=== PATIENT | female | born 1960 | race Caucasian/White ===

== ENCOUNTER → 2017-06-23 | Day surgery (SDC) | payer OTHER ==
[2017-06-17 11:10] VITALS: BP 116/50
[~2017-06-23] VITALS: Ht 160 cm; Wt 47.6 kg
[~2017-06-23] MED LIST: ALL DAY ALLERGY10 MG PO; D3-20002000 UNIT PO; GABAPENTIN100 M2 PO; LISINOPRIL AND1 TAB PO; LORAZEPAM0.5 MG PO; OMNICEF300 MG PO; ONDANSETRON HYDR4 M1 PO; OXYCODONE AND A1 TA3 PO; TIZANIDINE HCL4 MG PO
--- NOTE | ~2017-06-23 | O ---
[place], [place] OPERATIVE NOTE NAME: ALEXANDRA DAVE UNIT #: [id number] ROOM: DOCTOR: VARGAS VASQUEZ MD BIRTHDATE: [birth year] DOS: 06/23/2017 PREOPERATIVE DIAGNOSES: Left supraorbital skin lesion, left lower leg skin lesion. POSTOPERATIVE DIAGNOSES: Left supraorbital skin lesion, left lower leg skin lesion. PROCEDURE: Excisional biopsy of left supraorbital skin lesion, shave biopsy of a pigmented left leg lesion. SURGEON: Dr. Vasquez. ANESTHESIA: General. The patient is being taken to the operating room for excisional biopsy of several pigmented skin lesions she is concerned about. First is in the left supraorbital region near the eyebrow. Second is in the lower leg and is less than 1 cm. DESCRIPTION OF PROCEDURE: Following induction of general anesthesia, the patient was positioned supine on the OR table and draped and prepped in a standard fashion. Left supraorbital region was identified first. A 2-3 cm elliptical excision of the pigmented left supraorbital lesion and surrounding normal skin was excised and submitted to pathology for histologic analysis. Minor bleeding was controlled with electrical cautery. The wound was closed with a running 5-0 nylon suture. A sterile dressing was applied. Shave biopsy was then performed of the left lower leg pigmented skin lesion which was less than 1 cm in diameter. Both specimens were submitted to pathology. At the end of the case, all instrument and sponge counts were correct. The patient was awakened and transported to PACU in satisfactory condition. VARGAS VASQUEZ MD CM:OPRECORD:OPERATIVE NOTE [id number] VARGAS VASQUEZ MD 06/25/17 0928 interface
[2017-06-23 09:09] VITALS: BP 138/69
[2017-06-23 10:30] VITALS: BP 107/58
[2017-06-23 10:45] VITALS: BP 107/58
[2017-06-23 10:57] VITALS: BP 105/60
== END | disposition home or self-care (01) ==
LOC: SDC 06-17 11:00
DX: L57.0 Actinic keratosis (principal); L82.1 Other seborrheic keratosis; I10 Essential (primary) hypertension; Z98.890 Other specified postprocedural states; F17.210 Nicotine dependence, cigarettes, uncomplicated; Z98.51 Tubal ligation status